=== PATIENT | female | born 1955 | race Caucasian/White ===

== ENCOUNTER 2024-07-09 06:28 | Outpatient (RCR) | payer OTHER, SELFPAY | END 2024-07-09 23:59 | disposition home or self-care (01) | LOC: RST 06:28 | PROVIDERS: ATTENDING PHYSICIAN Otolaryngology; FAMILY PHYSICIAN Nurse Practitioner Family | DX: J38.5 Laryngeal spasm (principal); R49.0 Dysphonia; R05.3 Chronic cough | CPT/HCPCS: 92507; 92524 ==

== ENCOUNTER 2024-07-24 09:12 | Outpatient (RCR) | payer OTHER, SELFPAY | END 2024-07-24 23:59 | disposition home or self-care (01) | LOC: RST 09:12 | PROVIDERS: ATTENDING PHYSICIAN Otolaryngology; FAMILY PHYSICIAN Nurse Practitioner Family | DX: J38.5 Laryngeal spasm (principal); R49.0 Dysphonia; R05.3 Chronic cough; Z98.890 Other specified postprocedural states | CPT/HCPCS: 92507 ==